=== PATIENT | male | born 1940 | race Caucasian/White ===

== ENCOUNTER 2017-08-18 05:45 | Inpatient (IN) | payer MEDICARE ==
[2017-08-18] MEDS ORDERED: Levofloxacin 500 mg/D5W 100 ml Premix Bag ONE (06:21)
[2017-08-18] MEDS ORDERED: Clindamycin/D5W 900 mg/50 ml Premix Bag ONE (06:21)
[2017-08-18] MEDS ORDERED: Heparin 5,000 UNITS/ML VIAL ONE (06:27)
[2017-08-18] MEDS ORDERED: Protamine Sulfate 50 MG/5 ML VIAL ONE (06:27)
[2017-08-18] MEDS ORDERED: Remifentanil HCl 2 MG in Sodium Chloride 0.9% 100 ML IV SCH (06:30)
[2017-08-18 07:06] LABS: Anion Gap 15 mmol/L (10-20); BUN (Urea Nitrogen) 25 mg/dL (8.4-25.7); Calc. Creatinine Clearance 58 mL/min (70-130); Calcium 9.4 mg/dL (7.8-10.44); Carbon Dioxide 27 mmol/L (23-31); Chloride 106 mmol/L (98-107); Estimated GFR-MDRD 77; Glucose 91 mg/dL (83-110); Potassium 3.8 mmol/L (3.5-5.1); Sodium 144 mmol/L (136-145)
[2017-08-18 07:22] LABS: Hemoglobin 16.8 g/dL (14.0-18.0); Mean Corpuscular HGB CONC 33.1 g/dL (32.0-36.0); Mean Corpuscular Hemoglobin 29.9 pg (27.0-31.0); Mean Corpuscular Volume 90.3 fL (78.0-98.0); Mean Platelet Volume 7.8 fL (7.4-10.4); Platelet Count 214 thou/uL (130-400); RBC Distribution Width 12.3 % (11.5-14.5); Red Blood Cell (RBC) Count 5.63 mill/uL (4.70-6.10); White Blood Cell (WBC) Count 4.2 thou/uL (4.8-10.8)
--- NOTE | 2017-08-18 07:51 | RAD ---
TWO VIEWS OF THE CHEST: COMPARISON: 05/17/16. HISTORY: Preoperative radiograph. FINDINGS: Two views of the chest show normal sized cardiomediastinal silhouette. There is no evidence of consol idation, mass, or pleural effusion. The bones are unremarkable. IMPRESSION: No evidence of acute cardiopulmonary disease. POS: [facility]
[2017-08-18] MEDS ORDERED: Bupivacaine HCl 0.5%/Epinephrine 1:200,000/PF 30 ml Vial ONE (08:38)
[2017-08-18] MEDS ORDERED: Labetalol HCl 100 MG/20 ML VIAL ONE (09:09)
[2017-08-18] MEDS ORDERED: Ondansetron HCl/PF 4 MG/2 ML Vial IVP PRN ×2 (09:09→12:20)
[2017-08-18] MEDS ORDERED: Labetalol HCl 100 MG/20 ML VIAL SLOW IVP PRN (09:09)
[2017-08-18] MEDS ORDERED: hydrALAZINE 20 MG/ML VIAL ONE (09:18)
--- NOTE | 2017-08-18 09:26 | OP ---
DATE OF OPERATION: 08/18/2017 PREOPERATIVE DIAGNOSIS: Asymptomatic left carotid stenosis. POSTOPERATIVE DIAGNOSIS: Asymptomatic left carotid stenosis. PROCEDURE: Left carotid endarterectomy with patch angioplasty. SURGEON: Nikunj Esquivel M.D. ANESTHESIA: General endotracheal - Dr. Marleny Carlos. ESTIMATED BLOOD LOSS: Less than 50. PROCEDURE IN DETAIL: After consent was obtained, the patient was brought to the operating room and p laced in the supine position on the operating room table. Appropriate anesthetic monitor was placed and general endotracheal anesthesia induced. Head was rotated. The right and left neck prepped and draped in usual sterile fashion. Joints were appropriately padded and supported. A skin incision was made along the anterior border of the sternocleidomastoid. Platysma was incised with electrocautery. Carotid sheath was entered. Common internal and external carotid arteries were carefully exposed. Vagus and hypoglossal nerves were noted and protected throughout the procedure. The patient was systemically heparinized. After 3 minutes, internal, common, and external carotid a rteries were serially clamped. Incision was made on the common carotid artery, extended through the bulb on the internal carotid artery and distal to plaque. A 10-Vincentian Westwood shunt was placed and an tegrade flow reestablished. There was excellent backbleeding. Endarterectomy was begun on the common carotid artery. Medial plane was developed and extended throu gh the bulb onto the internal carotid artery. Sharp endpoint was obtained. Eversion endarterectomy was performed on the external carotid artery. Endpoint was secured with a running 7-0 Prolene suture . Medial fibers were debrided and the artery was flushed. Bovine pericardial patch was sewn in plac e with running 7-0 Prolene suture. Prior to completion of the patch suture line, the shunt was clamp ed and removed. The patch suture line was completed. Antegrade flow was reestablished up the setter induction heating equipment al carotid artery for 10 seconds followed by the internal carotid artery. A 50 mg of protamine was g iven. Hemostasis was ensured. Wounds were copiously irrigated. Wound was injected with 0.5% Marcai ne with epinephrine. Wound was then closed in layers and Dermabond applied to the skin. The patient was awakened neurologically intact in the operating room.
[2017-08-18] MEDS ORDERED: Nitroglycerin 50 MG/250 ML BOT 250 ML ONE (09:34)
[2017-08-18] MEDS ORDERED: Nitroglycerin 50 MG/250 ML BOT 250 ML IVPB PRN (12:20)
[2017-08-18] MEDS ORDERED: HYDROcodone/Acetaminophen 5/325 mg Tablet PO PRN (12:20)
[2017-08-18] MEDS ORDERED: Acetaminophen 325 MG TAB PO PRN (12:20)
[2017-08-18] MEDS ORDERED: Fentanyl 100 MCG/2 ML VIAL SLOW IVP PRN (12:20)
[2017-08-18] MEDS ORDERED: hydrALAZINE 20 MG/ML VIAL SLOW IVP PRN (12:20)
[2017-08-18] MEDS: Sodium Chloride 0.9% 1,000 ML IV SCH ×2 (12:45→21:28)
[2017-08-18] MEDS ORDERED: Metoprolol Tartrate 25 MG TAB PO SCH (12:45)
[2017-08-18] MEDS: Clindamycin/D5W 900 MG in Premix Bag 1 BAG IVPB SCH ×2 (15:09→22:25)
[2017-08-18] MEDS: Atorvastatin Calcium 20 MG TAB PO SCH (20:13)
[2017-08-18] MEDS: Metoprolol Tartrate 25 MG TAB PO SCH (20:13)
[2017-08-19] MEDS: Clindamycin/D5W 900 MG in Premix Bag 1 BAG IVPB SCH (05:06)
[2017-08-19] MEDS: Metoprolol Tartrate 25 MG TAB PO SCH ×2 (08:56→21:04)
[2017-08-19] MEDS: Sodium Chloride 0.9% 1,000 ML IV SCH ×2 (08:57→19:55)
[2017-08-19] MEDS ORDERED: Prevnar 13-Val Conj/PF 0.5 ML SYRINGE IM ONE (09:00)
[2017-08-19] MEDS: Tamsulosin HCl 0.4 MG CAP PO SCH (09:25)
[2017-08-19] MEDS: HYDROcodone/Acetaminophen 5/325 mg Tablet PO PRN ×2 (17:15→21:03)
--- NOTE | 2017-08-19 18:12 | DIS ---
DATE OF ADMISSION: 08/18/2017 DATE OF DISCHARGE: 08/19/2017 PRINCIPAL DIAGNOSIS: Asymptomatic left carotid stenosis. SECONDARY DIAGNOSIS: Urinary retention. PROCEDURES PERFORMED: Left carotid endarterectomy. HISTORY OF PRESENT ILLNESS AND HOSPITAL COURSE: The patient is a 77-year-old man with an asymptomati c left carotid stenosis, who agreed to endarterectomy. His post-endarterectomy course was only notab le for an inability to void. He required catheter placement, conventional Mcrae could be passed and required every day and 900 mL of urine was obtained. On questioning, the patient admits to nocturia, but denies any obstructive symptoms bad enough for him to recognize such. On postoperative day #1, his blood pressure has been under adequate control. His voice is normal. His tongue is midline. He is able to swallow and breathe without any difficulty. There is a trivial amount of swelling associ ated with this decision. He is able to move all extremities normally. He is going to be given a dos e of Flomax and then a voiding trial, discharged home without a catheter if he is able to void and wi th the catheter and leg bag if he is not.
[2017-08-19] MEDS: Atorvastatin Calcium 20 MG TAB PO SCH (21:04)
[2017-08-20] MEDS: Metoprolol Tartrate 25 MG TAB PO SCH (08:15)
[2017-08-20] MEDS: Tamsulosin HCl 0.4 MG CAP PO SCH (08:16)
[2017-08-20] MEDS: Sodium Chloride 0.9% 1,000 ML IV SCH (08:27)
[2017-08-20 11:44] VITALS: BP 145/70; TEMP 98.4
== END 2017-08-20 16:00 | disposition home or self-care (01) | DRG 39 ==
LOC: SURG A 05:45 → CCU 11:12 → 2SE 08-19 20:35
PROVIDERS: ADMIT Thoracic Surgery (Cardiothoracic Vascular Surgery); ATTEND Thoracic Surgery (Cardiothoracic Vascular Surgery)
PROC: 03CL0ZZ Extirpation of Matter from Left Internal Carotid Artery, Open Approach (ICD-10-PCS; principal; 2017-08-18)
PROC: 03UL0KZ Supplement Left Internal Carotid Artery with Nonautologous Tissue Substitute, Open Approach (ICD-10-PCS; 2017-08-18)
DX: I65.23 Occlusion and stenosis of bilateral carotid arteries (principal); R33.9 Retention of urine, unspecified; I10 Essential (primary) hypertension; Z79.82 Long term (current) use of aspirin; Z79.899 Other long term (current) drug therapy
CPT/HCPCS: 71046; 80048; 85027; 93005; 93010; 94640; J0360; J0670; J1644; J1956; J2720; J3490; J7050; J7620

== ENCOUNTER 2020-03-23 12:31 | Day surgery (SDC) | payer MEDICARE ==
[2020-03-23] MEDS ORDERED: Sodium Bicarbonate 2.5 MEQ/5 ML VIAL ONE (13:22)
[2020-03-23] MEDS ORDERED: Lidocaine 1% PF 5 ML VIAL ONE (13:22)
--- NOTE | 2020-03-23 14:21 | ULT ---
Ultrasound-guided right parotid lesion FNA Operators: Dr. Giorgio Dotson and Dr. Arsh Infante. DIAGNOSIS: T2 hyperintense right parotid lobe lesion identified on MR of the head dated February 10, 2020. TECHNIQUE: Informed consent was obtained. Preprocedure ultrasound identified a hypoechoic well-circum scribed nodule within the posterior right parotid gland measuring 9 x 4 mm that likely corresponds to the T2 hyperintense lesion seen on the comparison MR examination. Site overlying the right parotid lesion was cleansed utilizing ChloraPrep solution. Site overlying this lesion was anesthetized utilizing buffered 1% lidocaine. Under ultrasound guidance, two separate 25-gauge spinal needles were guided down into the lesion and sampled. Two FNA samples were obtained. Patient tolerated procedure without difficulty. No postprocedural intraparenchymal hematoma is evident. The pathology t ech was on-site to acquire the FNA samples once obtained. IMPRESSION: Successful ultrasound-guided right parotid lesion FNA. Transcribed Date/Time: 03/23/2020 2:42 PM
[2020-03-23 15:39] VITALS: BP 125/69; TEMP 98
== END 2020-03-23 14:30 | disposition home or self-care (01) ==
LOC: ULT 12:31 → SDC/OP 14:30
PROVIDERS: ATTEND Student in an Organized Health Care Education/Training Program
PROC: 0GJ Endocrine System, Inspection (ICD-10-PCS; principal; 2020-03-23)
DX: K11.8 Other diseases of salivary glands (principal); I10 Essential (primary) hypertension; E78.5 Hyperlipidemia, unspecified; M10.9 Gout, unspecified; Z88.0 Allergy status to penicillin
CPT/HCPCS: 60100; 76942; 88173

== ENCOUNTER 2022-05-06 16:49 | Emergency (ER) | payer MEDICARE ==
[2022-05-06 21:02] LABS: #Lymphocytes 0.6 thou/uL (1.20-3.40); #Monocytes 0.5 thou/uL (0.11-0.59); #Neutrophils 8.6 thou/uL (1.40-6.50); %Basophils 0.1 % (0.0-1.0); %Eosinophils 0.3 % (0.0-10.0); %Lymphocytes 6.2 % (21.0-51.0); %Monocytes 5.6 % (0.0-10.0); %Neutrophils 87.9 % (42.0-75.0); Hemoglobin 14.5 g/dL (14.0-18.0); Mean Corpuscular HGB CONC 31.9 g/dL (32.0-36.0); Mean Corpuscular Hemoglobin 27.8 pg (27.0-31.0); Mean Corpuscular Volume 87.2 fl (78.0-98.0); Platelet Count 230 10x3/uL (130-400); Red Blood Cell (RBC) Count 5.23 mill/uL (4.70-6.10); White Blood Cell (WBC) Count 9.7 10x3/uL (4.8-10.8)
[2022-05-06] MEDS ORDERED: Ondansetron PF 4 MG/2 ML Vial ONE (21:06)
[2022-05-06] MEDS ORDERED: Morphine 4 MG/ML VIAL ONE (21:06)
[2022-05-06 21:09] LABS: PTT 25.8 sec (22.9-36.1); Prothrombin Time 13.7 sec (12.0-14.7)
[2022-05-06 21:22] LABS: ALT (SGPT) 21 U/L (8-55); AST (SGOT) 18 U/L (5-34); Albumin 4.2 g/dL (3.4-4.8); Alkaline Phosphatase 84 U/L (40-110); Anion Gap 17 mmol/L (10-20); BUN (Urea Nitrogen) 21 mg/dL (8.4-25.7); Bilirubin, Total 0.8 mg/dL (0.2-1.2); Calc. Creatinine Clearance 0 mL/min (70-130); Carbon Dioxide 23 mmol/L (23-31); Chloride 104 mmol/L (98-107); Estimated GFR 70; Globulin 3.3 g/dL (2.4-3.5); Glucose 118 mg/dL (83-110); Potassium 3.7 mmol/L (3.5-5.1); Protein, Total 7.5 g/dL (5.8-8.1); Sodium 140 mmol/L (136-145)
[2022-05-06 22:49] LABS: Bacteria/HPF 4+ HPF (None Seen); Bilirubin Negative (Negative); Blood, Urine 2+ (Negative); Clarity Turbid (Clear); Glucose, Urine (Dipstick) Normal (Negative); Ketone, Urine 10 mg/dL (Negative); Leukocyte 500 Leu/uL (Negative); Nitrite Negative (Negative); Protein, Urine (Dipstick) 30 mg/dL (Neg-Trace); RBC/HPF 21-50 HPF (0-3); Specific Gravity, Urine 1.015 (1.002-1.036); Squamous Epithelial 0-3 HPF (0-3); Urobilinogen Normal mg/dL (Less than 2); WBC/HPF Greater than 50 HPF (0-3)
[2022-05-06] MEDS ORDERED: Doxycycline 100 MG CAP PO SCH (23:15)
== END 2022-05-06 22:43 | disposition home or self-care (01) ==
LOC: ERS 16:49
DX: N39.0 Urinary tract infection, site not specified (principal); R33.9 Retention of urine, unspecified; I10 Essential (primary) hypertension; E78.5 Hyperlipidemia, unspecified
CPT/HCPCS: 51702; 80053; 81003; 81015; 85025; 85610; 85730; 87077; 87086; 87186; 96374; 96375; J2270; J2405

== ENCOUNTER 2023-04-06 16:17 | Inpatient (IN) | payer MEDICARE ==
[~2023-04-06 16:17] MED LIST: Iopamidol-370 76% 500 ML MDV (1 ML CHARGE) ONE
[2023-04-06 16:44] LABS: #Eosinphils 0.2 thou/uL (0.0-0.7); #Monocytes 0.7 thou/uL (0.11-0.59); #Neutrophils 5.6 thou/uL (1.40-6.50); %Basophils 0.1 % (0.0-1.0); %Eosinophils 2.3 % (0.0-10.0); %Lymphocytes 16.1 % (21.0-51.0); %Monocytes 9.4 % (0.0-10.0); %Neutrophils 71.8 % (42.0-75.0); Hematocrit 44.7 % (42.0-52.0); Hemoglobin 14.9 g/dL (14.0-18.0); Mean Corpuscular HGB CONC 33.3 g/dL (32.0-36.0); Mean Corpuscular Hemoglobin 28.9 pg (27.0-31.0); Mean Corpuscular Volume 86.6 fl (78.0-98.0); Mean Platelet Volume 9.9 fL (7.4-10.4); Platelet Count 244 10x3/uL (130-400); RBC Distribution Width 14.2 % (11.5-14.5); Red Blood Cell (RBC) Count 5.16 mill/uL (4.70-6.10); White Blood Cell (WBC) Count 7.8 10x3/uL (4.8-10.8)
[2023-04-06] MEDS ORDERED: Tenecteplase 50 MG ONE (16:53)
[2023-04-06 16:58] LABS: PTT 28.2 sec (22.9-36.1); Prothrombin Time 13.4 sec (12.0-14.7)
[2023-04-06 17:03] LABS: ALT (SGPT) Less than 7 U/L (8-55); AST (SGOT) 16 U/L (5-34); Acetaminophen Less than 10 mcg/mL (10.0-30.0); Albumin 4.2 g/dL (3.4-4.8); Alcohol Less than 10.0 mg/dL (Less than 10); Alkaline Phosphatase 71 U/L (40-110); Anion Gap 13 mmol/L (10-20); BUN (Urea Nitrogen) 21 mg/dL (8.4-25.7); Bilirubin, Total 0.5 mg/dL (0.2-1.2); CK (CPK) 52 U/L (30-200); Calc. Creatinine Clearance 0 mL/min (70-130); Calcium 8.8 mg/dL (7.8-10.44); Carbon Dioxide 23 mmol/L (23-31); Chloride 109 mmol/L (98-107); Estimated GFR 75; Globulin 2.8 g/dL (2.4-3.5); Glucose 88 mg/dL (83-110); Lipase 39 U/L (8-78); Potassium 4.1 mmol/L (3.5-5.1); Salicylate Less than 8.0 mg/dL (15.0-30.0); Sodium 141 mmol/L (136-145)
[2023-04-06 17:07] LABS: Troponin I Less than 0.010 ng/mL (< 0.028)
[2023-04-06 17:42] LABS: SARS-CoV-2 NAA Rapid Test Not Detected (NotDetected)
[2023-04-06] MEDS ORDERED: hydrALAZINE 20 MG/ML VIAL ONE (18:03)
[2023-04-06] MEDS ORDERED: hydrALAZINE 20 MG/ML VIAL SLOW IVP PRN (18:16)
[2023-04-06] MEDS ORDERED: Labetalol HCl 100 MG/20 ML VIAL SLOW IVP PRN (18:16)
[2023-04-06] MEDS ORDERED: Communication Order-Pharmacy FS SCH (18:16)
[2023-04-06] MEDS ORDERED: niCARdipine 25 MG in Sodium Chloride 0.9% 250 ML 250 ML IVPB PRN (18:16)
[2023-04-06] MEDS ORDERED: Acetaminophen 650 MG Suppository PR PRN (18:16)
[2023-04-06] MEDS: Atorvastatin Calcium 40 MG TAB PO SCH (20:36)
[2023-04-07] MEDS: FLU VACC QS2023(65UP)/MF59C/PF 60 MCG/0.5 ML SYRINGE IM ONE (09:48)
[2023-04-07] MEDS: Pantoprazole 40 MG VIAL IVP SCH (09:49)
[2023-04-08 05:34] LABS: #Eosinphils 0.2 thou/uL (0.0-0.7); #Monocytes 0.6 thou/uL (0.11-0.59); #Neutrophils 3.9 thou/uL (1.40-6.50); %Basophils 0.5 % (0.0-1.0); %Eosinophils 3.6 % (0.0-10.0); %Lymphocytes 16.3 % (21.0-51.0); %Neutrophils 68.4 % (42.0-75.0); Hematocrit 46.9 % (42.0-52.0); Mean Corpuscular Hemoglobin 28.6 pg (27.0-31.0); Mean Corpuscular Volume 89.5 fl (78.0-98.0); Platelet Count 217 10x3/uL (130-400); RBC Distribution Width 14.3 % (11.5-14.5); Red Blood Cell (RBC) Count 5.24 mill/uL (4.70-6.10); White Blood Cell (WBC) Count 5.6 10x3/uL (4.8-10.8)
[2023-04-08 06:01] LABS: ALT (SGPT) 9 U/L (8-55); AST (SGOT) 17 U/L (5-34); Albumin 3.9 g/dL (3.4-4.8); Alkaline Phosphatase 69 U/L (40-110); Anion Gap 18 mmol/L (10-20); BUN (Urea Nitrogen) 30 mg/dL (8.4-25.7); Bilirubin, Total 0.9 mg/dL (0.2-1.2); Calc. Creatinine Clearance 43 mL/min (70-130); Calcium 8.9 mg/dL (7.8-10.44); Carbon Dioxide 20 mmol/L (23-31); Chloride 106 mmol/L (98-107); Cholesterol 212 mg/dl (< 200 Desired); Estimated GFR 76; Globulin 3.1 g/dL (2.4-3.5); Glucose 59 mg/dL (83-110); HDL Cholesterol 42 mg/dL (>60 Neg Risk); LDL Cholesterol, Calculated 157 mg/dL; Potassium 3.8 mmol/L (3.5-5.1); Sodium 140 mmol/L (136-145); Triglycerides 66 mg/dL (Less than 150)
[2023-04-08] MEDS ORDERED: Dextrose 5% in Water 1,000 ML IV PRN (09:21)
[2023-04-08] MEDS ORDERED: Glucagon 1 MG/ML KIT IM PRN (09:21)
[2023-04-08] MEDS ORDERED: Dextrose 50% Abboject 50 ML SYRINGE SLOW IVP PRN (09:21)
[2023-04-08] MEDS: Potassium Chloride 10 MEQ in Dextrose 5 % And 0.9 % NaCl 1,000 ML IV SCH (10:45)
[2023-04-08] MEDS: Metoprolol Tartrate 25 MG TAB PO SCH (20:56)
[2023-04-09] MEDS: Tamsulosin HCl 0.4 MG CAP PO SCH (08:19)
[2023-04-09] MEDS: Aspirin 300 MG Suppository PR SCH (08:25)
[2023-04-09] MEDS ORDERED: Aspirin Chewable 81 MG TAB PO SCH (09:00)
[2023-04-09] MEDS ORDERED: E-Z-HD 98% W/W 340GM BOT (x-ray ONLY) ONE (10:29)
[2023-04-10] MEDS: Aspirin 81 mg Enteric Coated Tablet PO SCH (08:59)
[2023-04-10] MEDS: Bisacodyl 10 MG SUPP PR SCH (11:22)
[2023-04-10] MEDS: Aspirin Chewable 81 MG TAB PER TUBE SCH (11:22)
[2023-04-10] MEDS: Metoclopramide HCl 10 MG (2 mL) VIAL IVP SCH (11:22)
[2023-04-11] MEDS: Aspirin Chewable 81 MG TAB PER TUBE SCH (09:56)
[2023-04-11] MEDS: Scopolamine 1 mg/72 hour Patch TD SCH (12:56)
[2023-04-12 04:59] LABS: #Eosinphils 0.3 thou/uL (0.0-0.7); #Monocytes 0.8 thou/uL (0.11-0.59); #Neutrophils 4.5 thou/uL (1.40-6.50); %Basophils 0.5 % (0.0-1.0); %Eosinophils 3.9 % (0.0-10.0); %Lymphocytes 13.4 % (21.0-51.0); %Monocytes 12.1 % (0.0-10.0); %Neutrophils 69.9 % (42.0-75.0); Hematocrit 38.2 % (42.0-52.0); Hemoglobin 12.8 g/dL (14.0-18.0); Mean Corpuscular HGB CONC 33.5 g/dL (32.0-36.0); Mean Corpuscular Hemoglobin 28.8 pg (27.0-31.0); Mean Corpuscular Volume 85.8 fl (78.0-98.0); Mean Platelet Volume 10.7 fL (7.4-10.4); Platelet Count 199 10x3/uL (130-400); RBC Distribution Width 13.9 % (11.5-14.5); Red Blood Cell (RBC) Count 4.45 mill/uL (4.70-6.10); White Blood Cell (WBC) Count 6.4 10x3/uL (4.8-10.8)
[2023-04-12 05:14] LABS: INR-International Normal Ratio 1.2; Prothrombin Time 14.9 sec (12.0-14.7)
[2023-04-12 05:55] LABS: Anion Gap 9 mmol/L (10-20); BUN (Urea Nitrogen) 26 mg/dL (8.4-25.7); Calc. Creatinine Clearance 48 mL/min (70-130); Calcium 8.1 mg/dL (7.8-10.44); Carbon Dioxide 29 mmol/L (23-31); Chloride 103 mmol/L (98-107); Estimated GFR 85; Glucose 114 mg/dL (83-110); Potassium 3.7 mmol/L (3.5-5.1); Sodium 137 mmol/L (136-145)
[2023-04-12] MEDS: Furosemide 40 MG (4 mL) VIAL SLOW IVP SCH (09:34)
[2023-04-12] MEDS: LevoFLOXacin 750 mg/D5W 750 MG in Premix 1 BAG IVPB SCH (09:34)
[2023-04-12] MEDS: metroNIDAZOLE 500 MG in Premix 1 BAG IVPB SCH (14:15)
[2023-04-12] MEDS ORDERED: LevoFLOXacin 500 mg/D5W 500 MG in Premix 1 BAG IVPB SCH (18:00)
[2023-04-13 05:13] LABS: #Eosinphils 0.2 thou/uL (0.0-0.7); #Neutrophils 4.8 thou/uL (1.40-6.50); %Basophils 0.3 % (0.0-1.0); %Eosinophils 2.6 % (0.0-10.0); %Lymphocytes 19.6 % (21.0-51.0); %Neutrophils 64.2 % (42.0-75.0); Hematocrit 44.6 % (42.0-52.0); Hemoglobin 14.5 g/dL (14.0-18.0); Mean Corpuscular HGB CONC 32.5 g/dL (32.0-36.0); Mean Corpuscular Hemoglobin 28.4 pg (27.0-31.0); Mean Corpuscular Volume 87.3 fl (78.0-98.0); Mean Platelet Volume 11.2 fL (7.4-10.4); Platelet Count 240 10x3/uL (130-400); RBC Distribution Width 13.9 % (11.5-14.5); Red Blood Cell (RBC) Count 5.11 mill/uL (4.70-6.10); White Blood Cell (WBC) Count 7.4 10x3/uL (4.8-10.8)
[2023-04-13 05:38] LABS: INR-International Normal Ratio 1.2; Prothrombin Time 14.9 sec (12.0-14.7)
[2023-04-13 05:59] LABS: Anion Gap 14 mmol/L (10-20); BUN (Urea Nitrogen) 29 mg/dL (8.4-25.7); Calc. Creatinine Clearance 48 mL/min (70-130); Calcium 8.9 mg/dL (7.8-10.44); Carbon Dioxide 27 mmol/L (23-31); Chloride 100 mmol/L (98-107); Estimated GFR 79; Glucose 95 mg/dL (83-110); Potassium 4.1 mmol/L (3.5-5.1); Sodium 137 mmol/L (136-145)
[2023-04-14] MEDS ORDERED: PROPOFOL 20 ML ONE (08:41)
[2023-04-14] MEDS ORDERED: Lidocaine 1% PF 5 ML VIAL ONE (08:43)
[2023-04-14] MEDS ORDERED: PHENYLEPHRINE-NS 100 MCG/ML 10 ML SYRINGE ONE (08:43)
[2023-04-14] MEDS ORDERED: Esmolol 100 MG/10 ML VIAL ONE (09:05)
[2023-04-14] MEDS: Scopolamine 1 mg/72 hour Patch TD SCH (11:25)
[2023-04-14] MEDS: Acetaminophen 325 MG TAB PO PRN (11:31)
[2023-04-14] MEDS: Transdermal Patch Removal TOP SCH (11:43)
[2023-04-14] MEDS ORDERED: HYDROcodone/Acetaminophen 5/325 mg Tablet PO PRN (13:34)
[2023-04-14] MEDS: guaiFENesin ER 600 MG TAB PO SCH ×2 (15:22→21:40)
[2023-04-14] MEDS: Dicyclomine 10 MG/5 ML ORAL SOLN UD CUP PO PRN (17:13)
[2023-04-15 06:11] LABS: #Eosinphils 0.4 thou/uL (0.0-0.7); #Monocytes 0.6 thou/uL (0.11-0.59); #Neutrophils 4.1 thou/uL (1.40-6.50); %Basophils 0.2 % (0.0-1.0); %Eosinophils 6.1 % (0.0-10.0); %Lymphocytes 13.8 % (21.0-51.0); %Monocytes 10.6 % (0.0-10.0); %Neutrophils 69.1 % (42.0-75.0); Hematocrit 37.5 % (42.0-52.0); Hemoglobin 12.3 g/dL (14.0-18.0); Mean Corpuscular HGB CONC 32.8 g/dL (32.0-36.0); Mean Corpuscular Hemoglobin 28.8 pg (27.0-31.0); Mean Corpuscular Volume 87.8 fl (78.0-98.0); Mean Platelet Volume 10.8 fL (7.4-10.4); Platelet Count 258 10x3/uL (130-400); RBC Distribution Width 13.8 % (11.5-14.5); Red Blood Cell (RBC) Count 4.27 mill/uL (4.70-6.10); White Blood Cell (WBC) Count 5.9 10x3/uL (4.8-10.8)
[2023-04-15 06:35] LABS: Anion Gap 10 mmol/L (10-20); BUN (Urea Nitrogen) 31 mg/dL (8.4-25.7); Calc. Creatinine Clearance 53 mL/min (70-130); Calcium 8.3 mg/dL (7.8-10.44); Carbon Dioxide 27 mmol/L (23-31); Chloride 103 mmol/L (98-107); Estimated GFR 86; Glucose 106 mg/dL (83-110); Potassium 4.1 mmol/L (3.5-5.1); Sodium 136 mmol/L (136-145)
[2023-04-16] MEDS: Ondansetron PF 4 MG/2 ML Vial IVP PRN (11:01)
[2023-04-17 06:13] LABS: Hematocrit 37.8 % (42.0-52.0); Hemoglobin 12.4 g/dL (14.0-18.0); Mean Corpuscular HGB CONC 32.8 g/dL (32.0-36.0); Mean Corpuscular Hemoglobin 28.8 pg (27.0-31.0); Mean Corpuscular Volume 87.7 fl (78.0-98.0); Mean Platelet Volume 10.7 fL (7.4-10.4); Platelet Count 260 10x3/uL (130-400); RBC Distribution Width 13.7 % (11.5-14.5); Red Blood Cell (RBC) Count 4.31 mill/uL (4.70-6.10); White Blood Cell (WBC) Count 4.4 10x3/uL (4.8-10.8)
[2023-04-17 06:23] LABS: Anion Gap 9 mmol/L (10-20); BUN (Urea Nitrogen) 23 mg/dL (8.4-25.7); Calc. Creatinine Clearance 54 mL/min (70-130); Carbon Dioxide 27 mmol/L (23-31); Chloride 102 mmol/L (98-107); Estimated GFR 87; Glucose 92 mg/dL (83-110); Potassium 4.1 mmol/L (3.5-5.1); Sodium 134 mmol/L (136-145)
[2023-04-17] MEDS: Tamsulosin HCl 0.4 MG CAP PO SCH (11:05)
[2023-04-17] MEDS: Metoprolol Tartrate 25 MG TAB PO SCH ×2 (11:05→21:30)
[2023-04-17 14:47] VITALS: BMI 19.2
[2023-04-18 04:08] LABS: Bacteria/HPF None Seen HPF (None Seen); Bilirubin Negative (Negative); Blood, Urine Negative (Negative); CAUTI Indications for Culture Fever or rigors; Clarity Clear (Clear); Glucose, Urine (Dipstick) Normal (Negative); Ketone, Urine Negative (Negative); Leukocyte 25 Leu/uL (Negative); Nitrite Negative (Negative); Protein, Urine (Dipstick) Negative (Neg-Trace); Squamous Epithelial 0-3 HPF (0-3); Urobilinogen Normal mg/dL (Less than 2); pH, Urine 6.5 (5.0-9.0)
[2023-04-18 04:32] LABS: Urine Culture Reflex No No
[2023-04-18 06:38] LABS: #Eosinphils 0.3 thou/uL (0.0-0.7); #Monocytes 0.6 thou/uL (0.11-0.59); #Neutrophils 2.5 thou/uL (1.40-6.50); %Basophils 0.5 % (0.0-1.0); %Eosinophils 7.3 % (0.0-10.0); %Lymphocytes 15.5 % (21.0-51.0); %Monocytes 15.5 % (0.0-10.0); Hematocrit 36.4 % (42.0-52.0); Hemoglobin 12.3 g/dL (14.0-18.0); Mean Corpuscular HGB CONC 33.8 g/dL (32.0-36.0); Mean Corpuscular Hemoglobin 29.6 pg (27.0-31.0); Mean Corpuscular Volume 87.7 fl (78.0-98.0); Mean Platelet Volume 10.9 fL (7.4-10.4); Platelet Count 293 10x3/uL (130-400); RBC Distribution Width 13.5 % (11.5-14.5); Red Blood Cell (RBC) Count 4.15 mill/uL (4.70-6.10); White Blood Cell (WBC) Count 4.1 10x3/uL (4.8-10.8)
[2023-04-18 07:06] LABS: Anion Gap 10 mmol/L (10-20); BUN (Urea Nitrogen) 27 mg/dL (8.4-25.7); Calc. Creatinine Clearance 55 mL/min (70-130); Calcium 8.1 mg/dL (7.8-10.44); Carbon Dioxide 26 mmol/L (23-31); Chloride 102 mmol/L (98-107); Estimated GFR 87; Glucose 129 mg/dL (83-110); Sodium 134 mmol/L (136-145)
[2023-04-18] MEDS: Tamsulosin HCl 0.4 MG CAP PO SCH (09:11)
[2023-04-18 16:34] VITALS: BP 103/56; TEMP 97.5
== END 2023-04-18 19:10 | DRG 61 ==
LOC: ERS 16:17 → SUATTDRO 16:17 → CCU 17:48 → 2SE 04-09 20:09
PROVIDERS: ADMIT Family Medicine; ATTEND Internal Medicine
PROC: 3E03317 Introduction of Other Thrombolytic into Peripheral Vein, Percutaneous Approach (ICD-10-PCS; principal; 2023-04-06)
PROC: 0DJ08ZZ Inspection of Upper Intestinal Tract, Via Natural or Artificial Opening Endoscopic (ICD-10-PCS; 2023-04-14)
PROC: 0DH64UZ Insertion of Feeding Device into Stomach, Percutaneous Endoscopic Approach (ICD-10-PCS; 2023-04-14)
DX: I63.512 Cerebral infarction due to unspecified occlusion or stenosis of left middle cerebral artery (principal); K31.811 Angiodysplasia of stomach and duodenum with bleeding; K56.7 Ileus, unspecified; I10 Essential (primary) hypertension; R47.01 Aphasia; Z66 Do not resuscitate; Z51.5 Encounter for palliative care; E78.5 Hyperlipidemia, unspecified; K44.9 Diaphragmatic hernia without obstruction or gangrene; N40.0 Benign prostatic hyperplasia without lower urinary tract symptoms; I65.22 Occlusion and stenosis of left carotid artery; I65.02 Occlusion and stenosis of left vertebral artery; R30.0 Dysuria; E16.2 Hypoglycemia, unspecified; R13.12 Dysphagia, oropharyngeal phase; I25.10 Atherosclerotic heart disease of native coronary artery without angina pectoris; Z88.0 Allergy status to penicillin; Z79.82 Long term (current) use of aspirin; Z79.899 Other long term (current) drug therapy; Z98.890 Other specified postprocedural states; Z95.1 Presence of aortocoronary bypass graft; Z11.52 Encounter for screening for COVID-19
CPT/HCPCS: 36415; 36416; 70450; 70496; 70498; 70551; 71045; 74018; 74230; 80048; 80053; 80061; 80307; 81001; 82550; 83605; 83690; 83735; 83880; 84443; 84484; 85025; 85027; 85610; 85730; 86140; 87040; 87077; 87149; 87186; 93005; 93306; 96374; 96375; C9113; J0360; J1940; J1956; J2405; J2704; J2765; J3101; J3480; J7042; Q9967

== ENCOUNTER 2024-03-07 08:55 | Outpatient (CLI) | payer MEDICARE | END 2024-03-07 08:56 | disposition home or self-care (01) | LOC: ULT 08:55 | PROVIDERS: ATTEND Psychiatry & Neurology Neurology | DX: I63.512 Cerebral infarction due to unspecified occlusion or stenosis of left middle cerebral artery (principal); M48.02 Spinal stenosis, cervical region; I63.231 Cerebral infarction due to unspecified occlusion or stenosis of right carotid arteries; E04.2 Nontoxic multinodular goiter | CPT/HCPCS: 76536; 93880 ==